=== PATIENT | female | born 1980 | race Caucasian/White ===

== ENCOUNTER 2017-02-19 18:35 | Observation (INO) ==
--- NOTE | 2017-02-19 19:00 | Emergency Department Note ---
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 The patient states that she also hit her head a week prior. The patient states for the past 3 days she has been experiencing right-sided paresthesias on the right and a severe headache on the left side of her head. The patient denies any true weakness. She states that she feels nauseated and has been gagging since then. The patient denies any other complaints at this time. The patient is sitting in the bed gagging and hiccuping, and rolling around the bed. Patient denies any other complaints. Onset (ago): day(s) (3) Location: head Pain Severity: severe Pain Scale: 10 Quality: crushing Consistency: constant Improves with: nothing Worsens with: nothing Associated symptoms: Reports: nausea/vomiting Treatments Prior to Arrival: none - Related Data Home Medications Medication Instructions Recorded Confirmed Albuterol Sulfate [Ventolin Hfa] 2 puff IH Q4H 07/03/16 02/19/17 Atorvastatin [Lipitor] 40 mg PO DAILY 07/03/16 02/19/17 Cholecalciferol (D-3) [Vitamin D] 2,000 unit PO DAILY 07/03/16 02/19/17 Clopidogrel [Plavix] 75 mg PO DAILY 07/03/16 02/19/17 Fish Oil/Dha/Epa [Fish Oil 1,200 1 cap PO DAILY 07/03/16 02/19/17 mg Fish Oil] Insulin DETEMIR [Levemir] 5 unit SQ HS 07/03/16 02/19/17 Insulin DETEMIR [Levemir] 15 unit SQ QAM 07/03/16 02/19/17 Insulin LISPRO [Humalog] 2 - 10 unit SQ TIDWM 07/03/16 02/19/17 Loratadine [Allergy Relief] 10 mg PO DAILY 07/03/16 02/19/17 Metoprolol XL (24 HR) Succ [Toprol 50 mg PO DAILY 07/03/16 02/19/17 Xl] Montelukast [Singulair] 10 mg PO DAILY 07/03/16 02/19/17 Naproxen [Naprosyn] 500 mg PO DAILY PRN 07/03/16 02/19/17 Omeprazole [PriLOSEC] 20 mg PO DAILY 07/03/16 02/19/17 Oxybutynin Chloride [Ditropan Xl] 10 mg PO DAILY 07/03/16 02/19/17 Tizanidine HCl [Zanaflex] 4 mg PO HS 07/03/16 02/19/17 amLODIPine [Norvasc] 10 mg PO DAILY 07/03/16 02/19/17 Famotidine [Pepcid] 40 mg PO HS 02/19/17 02/19/17 Fluticasone Propionate Nasal 50 mcg NS DAILY 02/19/17 02/19/17 [Flonase] Gabapentin [Neurontin] 600 mg PO TID 02/19/17 02/19/17 Multivitamin [Multi-Day Vitamins] 1 each PO DAILY 02/19/17 02/19/17 Nicotine Patch [Nicoderm] 21 mg TD DAILY 02/19/17 02/19/17 Ondansetron HCl [Zofran] 4 mg PO Q8H PRN 02/19/17 02/19/17 Paroxetine [Paxil] 50 mg PO QAM 02/19/17 02/19/17 SitaGLIPtin [Januvia] 100 mg PO DAILY 02/19/17 02/19/17 Allergies Allergy/AdvReac Type Severity Reaction Status Date / Time Amoxicillin [From Amoxil] Allergy Hives Verified 07/03/16 10:30 aspirin Allergy Hives Verified 07/03/16 10:30 cephalexin [From Keflex] Allergy Hives Verified 07/03/16 10:30 lisinopril Allergy Hives Verified 07/03/16 10:30 Penicillins Allergy Hives Verified 07/03/16 10:30 Sulfa (Sulfonamide Allergy Hives Verified 07/03/16 10:30 Antibiotics) sumatriptan [From Imitrex] Allergy Hives Verified 07/03/16 10:30 zolmitriptan [From Zomig] Allergy Hives Verified 07/03/16 10:30 All systems ED: reviewed and negative except as stated. Constitutional: Denies: fever, chills, weakness, weight change Eyes: Denies: eye pain, eye discharge, vision change ENT ED: Denies: ear pain, throat pain, dental pain, hearing loss, epistaxis, congestion, dysphagia Cardiovascular: Denies: chest pain, palpitations, dyspnea on exertion, edema, syncope Respiratory: Denies: cough, dyspnea, wheezes, hemoptysis, stridor Gastrointestinal: Denies: abdominal pain, nausea, vomiting, diarrhea, constipation, hematemesis, melena, hematochezia Genitourinary: Denies: dysuria, frequency, hematuria, discharge Musculoskeletal: Denies: back pain, neck pain, arthralgia, myalgia Integumentary: Denies: rash, abrasion, lesions Neurological: Reports: headache, numbness, paresthesias. Denies: weakness Past Medical History - Past Medical History Attestation: Yes The following information was validated with the patient. Source: patient Medical history: Reports: CVA, diabetes, hypertension, migraine, seizures, other Surgical history: Reports: no surgical history Psychiatric history: Reports: anxiety, bipolar, depression WORKS MANAGER history: Reports: no WORKS MANAGER history - Social History Smoking Status: Current every day smoker Smokeless Tobacco Status: No Alcohol use: Reports: occasionally Drug use: Reports: none Physical Exam - General Limitations: other General appearance: anxious - Head Head exam: atraumatic, normocephalic, normal inspection - Eye Eye exam: Present: normal appearance, PERRL, EOMI - ENT ENT exam: normal exam, normal oropharynx, mucous membranes moist - Neck Neck exam: Present: normal inspection, full ROM, trachea midline - Chest Chest inspection: Present: normal inspection, symmetric chest wall rise - Respiratory Respiratory exam: Present: normal lung sounds bilaterally - Cardiovascular Cardiovascular exam: Present: regular rate, normal rhythm, normal heart sounds - Abdominal Exam Abdominal exam: Present: soft, Non-Tender - Extremities Exam Extremities exam: Present: normal inspection, full ROM. Absent: pedal edema - Neurological Exam Neurological exam: Present: alert, oriented X3, CN II-XII intact - Psychiatric Psychiatric exam: Present: anxious - Skin Skin exam: Present: warm, dry, intact, normal color Course - Reevaluation(s) Reevaluation #1: Spoke with Dr. Lux in neurology who recommended CTA of the head and neck. We will obtain this as well as admit the patient to the hospitalist. Time: 20:30 Reevaluation #2: Spoke to Dr. Lux, who recommended that we consult [facility] with regards for possible stenting. After speaking with Dr. Beatty at [facility] there was no stenting recommended and to maximize medical therapy. He recommended MRI inpatient. We will perform this. Time: 22:47 Vital Signs Temperature 98.1 F 02/19/17 18:42 Pulse Rate 96 02/19/17 18:42 Respiratory Rate 18 02/19/17 18:42 Blood Pressure 133/87 02/19/17 18:42 O2 Sat by Pulse Oximetry 99 02/19/17 18:42 Temperature 98.1 F 02/19/17 18:42 Pulse Rate 96 02/19/17 18:42 Respiratory Rate 18 02/19/17 18:42 Blood Pressure 133/87 02/19/17 18:42 O2 Sat by Pulse Oximetry 99 02/19/17 18:42 Oxygen Delivery Oxygen Delivery Room Air Medical Decision Making - MDM Narrative Medical decision making narrative: Patient with history of CVA. She continues to experience paresthesias of right upper and lower extremities. The patient denies any chest pain. Patient does have a mild amount of epigastric pain at this time. EKG is unremarkable. CT scan unremarkable. The patient appears to be experiencing TIA versus complex migraine. We will admit the patient to the hospital at this time after consult in neurology. Patient denies any other complaints at this time. Headache has improved slightly but still present. Hospitalist accepted to their service. - Medical Records Medical records reviewed: Yes I reviewed the patient's medical records. - Lab Data Lab results reviewed: Yes I reviewed the patient's lab results. Result diagrams: 02/19/17 19:02 02/19/17 19:02 Lab Results 02/19/17 02/19/17 02/19/17 Range/Units 18:49 19:02 19:02 WBC 13.4 H (4.3-11.1) K/mcL RBC 5.20 H (3.82-4.97) M/mcL Hgb 14.6 (11.5-15.4) g/dL Hct 44.2 (35.3-44.9) % MCV 85.0 (83.0-100.0) fL MCH 28.1 (28.0-33.3) pg MCHC 33.0 (31.6-35.5) g/dL RDW 12.9 (11.5-14.5) % Plt Count 306 (140-400) K/mcL MPV 11.0 (9.4-12.4) fL Immature Gran % 0.4 (0-4) % Seg Neutrophils % 66.2 % Lymphocytes % 25.5 % Monocytes % 6.3 % Eosinophils % 1.1 % Basophils % 0.5 % Neutrophils # 8.9 (1.6-8.9) K/mcL Lymphocytes # 3.4 (0.6-4.6) K/mcL Monocytes # 0.8 (0.0-1.3) K/mcL Eosinophils # 0.2 (0.0-0.6) K/mcL Basophils # 0.1 (0.0-0.2) K/mcL PT (9.4-12.1) Seconds INR APTT (26.0-36.0) Seconds Sodium 135 L (136-145) mEq/L Potassium 3.8 (3.5-4.5) mEq/L Chloride 103 (98-109) mEq/L Carbon Dioxide 21 (19-29) mEq/L BUN 13 (7-20) mg/dL Creatinine 0.87 (0.57-1.11) mg/dL Est GFR ( Amer) > 60 (> 60) Est GFR (Non-Af Amer) > 60 (> 60) BUN/Creatinine Ratio 15 (6-26) Glucose 168 H (70-99) mg/dL POC Glucose 171 H (58-89) Calculated Osmolality 284 (280-300) Calcium 9.3 (8.6-10.8) mg/dL Total Bilirubin 0.2 (0.2-1.2) mg/dL AST 10 (5-34) Units/L ALT 11 (0-55) Units/L Alkaline Phosphatase 106 (38-126) Units/L Troponin I (0-0.03) ng/mL Serum Total Protein 7.6 (6.0-8.3) g/dL Albumin 3.4 L (3.5-5.0) g/dL Globulin 4.2 H (2.4-3.5) g/dL Albumin/Globulin Ratio 0.8 L (1.1-2.2) Urine Test (Negative) 02/19/17 02/19/17 02/19/17 Range/Units 19:02 19:02 20:03 WBC (4.3-11.1) K/mcL RBC (3.82-4.97) M/mcL Hgb (11.5-15.4) g/dL Hct (35.3-44.9) % MCV (83.0-100.0) fL MCH (28.0-33.3) pg MCHC (31.6-35.5) g/dL RDW (11.5-14.5) % Plt Count (140-400) K/mcL MPV (9.4-12.4) fL Immature Gran % (0-4) % Seg Neutrophils % % Lymphocytes % % Monocytes % % Eosinophils % % Basophils % % Neutrophils # (1.6-8.9) K/mcL Lymphocytes # (0.6-4.6) K/mcL Monocytes # (0.0-1.3) K/mcL Eosinophils # (0.0-0.6) K/mcL Basophils # (0.0-0.2) K/mcL PT 12.4 H (9.4-12.1) Seconds INR 1.1 APTT 27.5 (26.0-36.0) Seconds Sodium (136-145) mEq/L Potassium (3.5-4.5) mEq/L Chloride (98-109) mEq/L Carbon Dioxide (19-29) mEq/L BUN (7-20) mg/dL Creatinine (0.57-1.11) mg/dL Est GFR ( Amer) (> 60) Est GFR (Non-Af Amer) (> 60) BUN/Creatinine Ratio (6-26) Glucose (70-99) mg/dL POC Glucose (58-89) Calculated Osmolality (280-300) Calcium (8.6-10.8) mg/dL Total Bilirubin (0.2-1.2) mg/dL AST (5-34) Units/L ALT (0-55) Units/L Alkaline Phosphatase (38-126) Units/L Troponin I 0.00 (0-0.03) ng/mL Serum Total Protein (6.0-8.3) g/dL Albumin (3.5-5.0) g/dL Globulin (2.4-3.5) g/dL Albumin/Globulin Ratio (1.1-2.2) Urine Test Negative (Negative) - Radiology Data Radiology results reviewed: Yes I reviewed the patient's radiology results. - EKG Data EKG #1 EKG attestation: Yes I reviewed and interpreted this EKG. EKG results narrative: Heart rate 89 bpm. TX interval 216 ms. QTc 438 ms. Normal axis. Normal sinus rhythm. No ST elevation or ST depression noted. No acute changes from EKG from 07/03/2016. Attestation Statement - Attestation Attestation: I examined this patient and my medical decision-making was reviewed with the INDUSTRIAL REFRIGERATION MECHANIC/PA/Advanced Practice Nurse/Resident Physician. I agree with the documented findings, disposition and treatment plan as described except to the extent set forth below. [id number] time provided Patient complains of a headache that is subjectively different from her previous migraine-type headaches which she gets approximately twice per week. She states this headache moves in location. It is associated with nausea and photophobia. She appears slightly uncomfortable on exam but has a nonfocal neurologic exam. CT head negative for acute pathology including subarachnoid hemorrhage, mass effect, infarct
[2017-02-19 19:10] LABS: Basophils # 0.1 K/mcL (0.0-0.2); Basophils % 0.5 %; Eosinophils # 0.2 K/mcL (0.0-0.6); Eosinophils % 1.1 %; Hematocrit 44.2 % (35.3-44.9); Hemoglobin 14.6 g/dL (11.5-15.4); Immature Granulocytes % 0.4 % (0-4); Lymphocytes # 3.4 K/mcL (0.6-4.6); Lymphocytes % 25.5 %; Mean Corpuscular Hemoglobin 28.1 pg (28.0-33.3); Monocytes # 0.8 K/mcL (0.0-1.3); Monocytes % 6.3 %; Neutrophils # 8.9 K/mcL (1.6-8.9); Platelet Count 306 K/mcL (140-400); Red Cell Distribution Width 12.9 % (11.5-14.5); Segmented Neutrophils % 66.2 %
[2017-02-19 19:15] LABS: INR 1.1; Prothrombin Time 12.4 Seconds (9.4-12.1)
[2017-02-19] MEDS ORDERED: 0.9 % Sodium Chloride 1,000 ML IVC ONE (19:17)
[2017-02-19 19:18] LABS: Activated Partial Thrombo Time 27.5 Seconds (26.0-36.0)
[2017-02-19] MEDS ORDERED: Metoclopramide 10 MG/2 ML VIAL IVP ONE (19:18)
[2017-02-19 19:25] LABS: Alanine Aminotransferase 11 Units/L (0-55); Albumin 3.4 g/dL (3.5-5.0); Albumin/Globulin Ratio 0.8 (1.1-2.2); Alkaline Phosphatase 106 Units/L (38-126); Aspartate Amino Transferase 10 Units/L (5-34); BUN/Creatinine Ratio 15 (6-26); Bilirubin,Total 0.2 mg/dL (0.2-1.2); Blood Urea Nitrogen 13 mg/dL (7-20); Calcium 9.3 mg/dL (8.6-10.8); Carbon Dioxide 21 mEq/L (19-29); Chloride 103 mEq/L (98-109); Globulin 4.2 g/dL (2.4-3.5); Glucose 168 mg/dL (70-99); Osmolality,Calculated 284 (280-300); Potassium 3.8 mEq/L (3.5-4.5); Sodium 135 mEq/L (136-145); Total Protein 7.6 g/dL (6.0-8.3); eGFR For African Americans > 60 (> 60); eGFR For Non-African Americans > 60 (> 60)
[2017-02-19] MEDS ORDERED: Ketorolac 15 MG/ML VIAL IVP ONE (20:13)
[2017-02-20] MEDS ORDERED: Naloxone 0.4 MG/ML INJ IVP PRN (02:52)
[2017-02-20] MEDS ORDERED: Pantoprazole 40 MG VIAL IVP ONE (02:57)
[2017-02-20] MEDS ORDERED: D5% in Water 1,000 ML IVC PRN (02:58)
[2017-02-20] MEDS ORDERED: *HR* Dextrose 50 % in Water (Syg) 50 ML SYRINGE IVP PRN (02:58)
[2017-02-20] MEDS ORDERED: Dextrose Gel 15 GM PO PRN ×2 (02:58)
[2017-02-20] MEDS ORDERED: *HR* Morphine 2 MG/ML SYRINGE IVP ONE ×2 (02:59→06:05)
--- NOTE | 2017-02-20 03:03 | Internal Med History&Physical ---
Date of Encounter: 02/20/17 Time of Encounter: 03:03 Assessment and Plan (1) Headache Current visit: Yes Status: Acute Non-specific. Different from her usual pattern of migraine. CT head is negative. Consider Neurology consult Qualifiers: Headache type: unspecified Headache chronicity pattern: acute headache Intractability: intractable Qualified Code(s): R51 - Headache (2) TIA (transient ischemic attack) Current visit: Yes Status: Acute Right sided parasthesia. CT head shows no acute intracranial abnormality. CTA of neck and head reports focal stenosis of distal M1 segment of the left MCA. Will get MRI of the head, echocardiogram, Neurology consult, PT consult and speech therapy Qualifiers: Transient cerebral ischemia type: unspecified Qualified Code(s): G45.9 - Transient cerebral ischemic attack, unspecified (3) Essential hypertension Current visit: Yes Status: Chronic Continue home medications (4) Diabetes mellitus Current visit: Yes Status: Chronic Continue insulin and sliding scale Qualifiers: Diabetes mellitus type: type 2 Diabetes mellitus complication status: with neurologic complications Diabetes mellitus complication detail: with polyneuropathy Diabetes mellitus penitentiary insulin use: with penitentiary use Qualified Code(s): E11.42 - Type 2 diabetes mellitus with diabetic polyneuropathy; Z79.4 - halfway (current) use of insulin (5) Seizure disorder Current visit: Yes Status: Chronic Continue home meds. Neurology consult (6) Nicotine dependence Current visit: Yes Status: Chronic Nicotine patch Qualifiers: Nicotine product type: cigarettes Substance use status: uncomplicated Qualified Code(s): F17.210 - Nicotine dependence, cigarettes, uncomplicated (7) Numbness on right side Current visit: Yes Status: Acute CT head is negative. MRI head is pending. (8) Mediastinal mass Current visit: Yes Status: Acute CTA neck reported anterior mediastinal mass - consulted thoracic surgery for further w/u Internal Medicine - H&P: HPI Chief complaint: Headache; right upper extremtiy numbeness Admitted From: Emergency Dept Plans for Post Hospital Care: Home History of present illness: Ms. Kraus is a 36 year old female with history of insulin-dependent diabetes , seizure disorder, CVA due to vertebral artery dissection, hypertension, migraine. She presents with left sided headache, severe, sharp, going across the head different from her usual migraine. She had CVA with right sided weakness and residual right-sided numbness and paresthesias, worsening for the past 3 days. She reports long h/o word finding difficulty and slurred speech, which is unchanged. She reports that she was stung by a bee and immediately struck her head on the corner of a cabinet. The patient states that she also hit her head a week prior. She reports chest pain in the central chest pain - sharp, non radiating, and worse with movements and .deep breath. She denies significant shortness of breath, cough, expectoration, fever, chills. Reports some epigastric pain, and in the lower rib area bilaterally. She reports nausea, denies vomiting, dysuria , bowel changes. She was evaluated in the ER - CT head shows no acute intracranial abnormality. CTA of neck and head reports focal stenosis of distal M1 segment of the left MCA. Neurologist recommended MRI of head. She is admitted to the hospitalist service for further w/u and management. Past Med Surg Social Fam HX - Past Medical History Medical history: CVA, diabetes, hypertension, migraine, seizures, other Psychiatric history: anxiety, bipolar, depression - Past Surgical History Surgical History: no surgical history - Social History Smoking Status: Current every day smoker Smokeless Tobacco Status: No Alcohol use: none, occasionally Drug use: none - Family History Mother Hx Family Cardiac Disorders: Yes (CAD) Internal Medicine - H&P: Meds Albuterol Sulfate [Ventolin Hfa] 2 puff IH Q4H 07/03/16 [History] Atorvastatin [Lipitor] 40 mg PO DAILY 07/03/16 [History] Cholecalciferol (D-3) [Vitamin D] 2,000 unit PO DAILY 07/03/16 [History] Clopidogrel [Plavix] 75 mg PO DAILY 07/03/16 [History] Fish Oil/Dha/Epa [Fish Oil 1,200 mg Fish Oil] 1 cap PO DAILY 07/03/16 [History] Insulin DETEMIR [Levemir] 5 unit SQ HS 07/03/16 [History] Insulin DETEMIR [Levemir] 15 unit SQ QAM 07/03/16 [History] Insulin LISPRO [Humalog] 2 - 10 unit SQ TIDWM 07/03/16 [History] Loratadine [Allergy Relief] 10 mg PO DAILY 07/03/16 [History] Metoprolol XL (24 HR) Succ [Toprol Xl] 50 mg PO DAILY 07/03/16 [History] Montelukast [Singulair] 10 mg PO DAILY 07/03/16 [History] Naproxen [Naprosyn] 500 mg PO DAILY PRN 07/03/16 [History] Omeprazole [PriLOSEC] 20 mg PO DAILY 07/03/16 [History] Oxybutynin Chloride [Ditropan Xl] 10 mg PO DAILY 07/03/16 [History] Tizanidine HCl [Zanaflex] 4 mg PO HS 07/03/16 [History] amLODIPine [Norvasc] 10 mg PO DAILY 07/03/16 [History] Famotidine [Pepcid] 40 mg PO HS 02/19/17 [History] Fluticasone Propionate Nasal [Flonase] 50 mcg NS DAILY 02/19/17 [History] Gabapentin [Neurontin] 600 mg PO TID 02/19/17 [History] Multivitamin [Multi-Day Vitamins] 1 each PO DAILY 02/19/17 [History] Nicotine Patch [Nicoderm] 21 mg TD DAILY 02/19/17 [History] Ondansetron HCl [Zofran] 4 mg PO Q8H PRN 02/19/17 [History] Paroxetine [Paxil] 50 mg PO QAM 02/19/17 [History] SitaGLIPtin [Januvia] 100 mg PO DAILY 02/19/17 [History] Allergies Amoxicillin [From Amoxil] Allergy (Verified 07/03/16 10:30) Hives aspirin Allergy (Verified 07/03/16 10:30) Hives cephalexin [From Keflex] Allergy (Verified 07/03/16 10:30) Hives lisinopril Allergy (Verified 07/03/16 10:30) Hives Penicillins Allergy (Verified 07/03/16 10:30) Hives Sulfa (Sulfonamide Antibiotics) Allergy (Verified 07/03/16 10:30) Hives sumatriptan [From Imitrex] Allergy (Verified 07/03/16 10:30) Hives zolmitriptan [From Zomig] Allergy (Verified 07/03/16 10:30) Hives All Systems PM: A 10-system review of systems was performed and is negative for pertinent findings except as documented above in the HPI. - Constitutional Vitals: Temp Pulse Resp BP Pulse Ox 98.0 F 79 16 157/99 98 02/20/17 00:15 02/20/17 00:15 02/20/17 00:15 02/20/17 00:15 02/20/17 00:15 Exam: General: In mild distress at my evaluation. HEENT: Oral mucosa is moist. No conjunctival palor or scleral icterus. There is superficial tenderness over the left hemicranium. Neck: No obvious neck swellings Lungs: Clear to auscultation. Chest wall tenderness present in the sternal area and in the left parasternal area Cardiac: Regular rate and rhythm. No significant murmurs Abdomen: Soft; Bowel sounds present. Mild tenderness in the epigastric area Genitourinary: No saenz catheter Neurological: Alert and oriented. Residual right sided weakness from prior CVA Psych: Not aggressive or agitated Extremities: no significant leg edema Skin: No generalized rash Internal Med - H&P Results - Labs CBC & Chem 7: 02/20/17 04:37 02/20/17 04:37 - EKG Data -: EKG Interpreted by Myself EKG shows normal: sinus rhythm - EKG Data EKG comments: 1st degree A-V block 02/20/17 09:00 - Impressions ITS Impressions Head CT 02/19/17 18:49 IMPRESSION: No acute intracranial abnormality. D/ / Richar Rivera MD / Richar Rivera MD Interpreting Provider: Richar Rivera MD Head CTA 02/19/17 20:27 IMPRESSION: 1. Focal stenosis of the distal M1 segment of the left MCA, of uncertain etiology. 2. Incidentally noted hypoattenuating mass within the anterior mediastinum. D/ / Ramin Whatley MD / Ramin Whatley MD Interpreting Provider: Ramin Whatley MD Neck CTA 02/19/17 20:27
[2017-02-20 05:17] LABS: Basophils # 0.1 K/mcL (0.0-0.2); Basophils % 0.6 %; Eosinophils # 0.2 K/mcL (0.0-0.6); Eosinophils % 2.1 %; Hemoglobin 12.9 g/dL (11.5-15.4); Immature Granulocytes % 0.3 % (0-4); Lymphocytes # 3.4 K/mcL (0.6-4.6); Lymphocytes % 33.9 %; Mean Corpuscular HGB Conc 33.1 g/dL (31.6-35.5); Mean Corpuscular Hemoglobin 28.5 pg (28.0-33.3); Mean Corpuscular Volume 86.1 fL (83.0-100.0); Mean Platelet Volume 11.8 fL (9.4-12.4); Monocytes # 0.6 K/mcL (0.0-1.3); Monocytes % 5.9 %; Neutrophils # 5.8 K/mcL (1.6-8.9); Platelet Count 241 K/mcL (140-400); Red Blood Count 4.53 M/mcL (3.82-4.97); Segmented Neutrophils % 57.2 %
[2017-02-20 05:45] LABS: BUN/Creatinine Ratio 15 (6-26); Blood Urea Nitrogen 12 mg/dL (7-20); Calcium 8.4 mg/dL (8.6-10.8); Carbon Dioxide 21 mEq/L (19-29); Chloride 107 mEq/L (98-109); Chol/HDL Ratio 6.1 (0-4.9); Cholesterol 190 mg/dL (< 200); Glucose 208 mg/dL (70-99); HDL Cholesterol 31 mg/dL (40-59); LDL Cholesterol,Calculated 131 mg/dL (0-99); Lipase 66 Units/L (8-78); Magnesium 1.6 mg/dL (1.6-2.6); Osmolality,Calculated 290 (280-300); Potassium 3.6 mEq/L (3.5-4.5); Sodium 137 mEq/L (136-145); Triglycerides 138 mg/dL (< 150); eGFR For African Americans > 60 (> 60); eGFR For Non-African Americans > 60 (> 60)
[2017-02-20] MEDS: Nicotine 14 MG PATCH.TD24 TD SCH ×3 (05:59→11:49)
[2017-02-20] MEDS ORDERED: Magnesium Sulfate 1 GM in D5% in Water 100 ML IVPB ONE (07:03)
[2017-02-20] MEDS: Insulin LISPRO 300 UNITS/3 ML VIAL SQ SCH ×3 (08:28→17:53)
[2017-02-20] MEDS ORDERED: NON-FORMULARY MEDICATION 1 EACH EACH (Insulin Detemir 15 UNIT) SQ SCH (09:15)
[2017-02-20] MEDS ORDERED: Ketorolac 30 MG/ML VIAL IVP ONE (09:53)
[2017-02-20] MEDS ORDERED: Prochlorperazine 10 MG/2 ML VIAL IVP ONE (09:54)
--- NOTE | 2017-02-20 11:23 | Neurology - Consult Note ---
Date of Encounter: 02/20/17 Time of Encounter: 11:19 Assessment and Plan (1) Migraine Current Visit: No Status: Acute Patient apparently did not have a stroke and her symptoms have been present more than 3 days therefore it does not fit the diagnosis of TIA. She does have history of left pontine stroke therefore she may have baseline residual right sided symptoms which may be complicated by migraines, fluctuating BP or other medical conditions. Has had CTA of neck and brain as well. negative except left distal M1 segment stenosis. Not candidate for any type of intervention. At this time, treatment is largely symptomatic and supportive care. Can be followed up in neurology clinic in few weeks after discharge. Continue Plavix 75mg daily. No changes will be made in terms of CVA prevention Qualifiers: Migraine type: without aura Status migrainosus presence: with status migrainosus Intractability: not intractable Qualified Code(s): G43.001 - Migraine without aura, not intractable, with status migrainosus History of Present Illness Chief complaint: headache nausea and right sided paresthesia HPI: Ms. Kraus is a 36 year old female with PMH significant for left pontine infarct during 2014, DM, HTN, seizure disorder, hyperlipidemia, migraine who developed headache, chest pain and nausea. Also reports 3 days history of right sided paresthesia and occasionally to the left side as well. Has history of CVA during 2014 at the left pontine area. Has been taking Plavix 75mg daily. Has had some residual right sided paresthesia as result of previous stroke. Has migraines in the past as well. MRI of brain showed no acute infarct. Past Med Surg Social Fam HX - Past Medical History Medical history: CVA, diabetes, hypertension, migraine, seizures, other Psychiatric history: anxiety, bipolar, depression - Past Surgical History Surgical History: no surgical history - Social History Smoking Status: Current every day smoker Smokeless Tobacco Status: No Alcohol use: none, occasionally Drug use: none - Family History Mother Hx Family Cardiac Disorders: Yes (CAD) Medications and Allergies Albuterol Sulfate [Ventolin Hfa] 2 puff IH Q4H 07/03/16 [History] Atorvastatin [Lipitor] 40 mg PO DAILY 07/03/16 [History] Cholecalciferol (D-3) [Vitamin D] 2,000 unit PO DAILY 07/03/16 [History] Clopidogrel [Plavix] 75 mg PO DAILY 07/03/16 [History] Fish Oil/Dha/Epa [Fish Oil 1,200 mg Fish Oil] 1 cap PO DAILY 07/03/16 [History] Insulin DETEMIR [Levemir] 5 unit SQ HS 07/03/16 [History] Insulin DETEMIR [Levemir] 15 unit SQ QAM 07/03/16 [History] Insulin LISPRO [Humalog] 2 - 10 unit SQ TIDWM 07/03/16 [History] Loratadine [Allergy Relief] 10 mg PO DAILY 07/03/16 [History] Metoprolol XL (24 HR) Succ [Toprol Xl] 50 mg PO DAILY 07/03/16 [History] Montelukast [Singulair] 10 mg PO DAILY 07/03/16 [History] Naproxen [Naprosyn] 500 mg PO DAILY PRN 07/03/16 [History] Omeprazole [PriLOSEC] 20 mg PO DAILY 07/03/16 [History] Oxybutynin Chloride [Ditropan Xl] 10 mg PO DAILY 07/03/16 [History] Tizanidine HCl [Zanaflex] 4 mg PO HS 07/03/16 [History] amLODIPine [Norvasc] 10 mg PO DAILY 07/03/16 [History] Famotidine [Pepcid] 40 mg PO HS 02/19/17 [History] Fluticasone Propionate Nasal [Flonase] 50 mcg NS DAILY 02/19/17 [History] Gabapentin [Neurontin] 600 mg PO TID 02/19/17 [History] Multivitamin [Multi-Day Vitamins] 1 each PO DAILY 02/19/17 [History] Nicotine Patch [Nicoderm] 21 mg TD DAILY 02/19/17 [History] Ondansetron HCl [Zofran] 4 mg PO Q8H PRN 02/19/17 [History] Paroxetine [Paxil] 50 mg PO QAM 02/19/17 [History] SitaGLIPtin [Januvia] 100 mg PO DAILY 02/19/17 [History] Allergies Amoxicillin [From Amoxil] Allergy (Verified 07/03/16 10:30) Hives aspirin Allergy (Verified 07/03/16 10:30) Hives cephalexin [From Keflex] Allergy (Verified 07/03/16 10:30) Hives lisinopril Allergy (Verified 07/03/16 10:30) Hives Penicillins Allergy (Verified 07/03/16 10:30) Hives Sulfa (Sulfonamide Antibiotics) Allergy (Verified 07/03/16 10:30) Hives sumatriptan [From Imitrex] Allergy (Verified 07/03/16 10:30) Hives zolmitriptan [From Zomig] Allergy (Verified 07/03/16 10:30) Hives All Systems: A 10-system review of systems was performed and is negative for pertinent findings except as documented above in the HPI. Physical Examination - Vital Signs Vital Signs: Initial Vital Signs Temp Pulse Resp BP Pulse Ox 98.1 F 96 18 133/87 99 02/19/17 18:42 02/19/17 18:42 02/19/17 18:42 02/19/17 18:42 02/19/17 18:42 - Constitutional General appearance: uncomfortable - Neurologic Sensorimotor examination: intact Detailed motor examination: grossly full strength in all extremities Motor examination - right side: 5/5: deltoids, biceps, triceps, wrist flexion, wrist extension, media developer, hip flexors, tibialis Anterior, quadriceps, toe extension (EHL), plantarflexion Motor examination - left side: 5/5: deltoids, biceps, triceps, wrist flexion, wrist extension, hip flexors, media developer, quadriceps, tibialis Anterior, toe extension (EHL), plantarflexion Detailed sensory examination: intact Posture: other (None) Reflexes: Biceps: 1+, Triceps: 1+, Brachioradialis: 1+, Patella: 1+ Mental Status Examination: awake, alert, oriented to person, oriented to place, oriented to time, follows commands appropriately, answers questions appropriately, no agnosia, no aphasia, no aproxia Cranial nerve examination: PERRL, EOMI, visual arevalo intact, corneal reflexes brisk symmetrically, sensory to face intact, mastication intact, no facial asymmetry is present, no dysarthria, hearing is intact symmetrically, soft palate elevates bilaterally upon phonation, gag reflex intact, flexes SCM and trapezius muscles symmetrically with full power, tongue protrudes midline, no atrophy or facial fasiculations present Results - Laboratory Findings CBC and BMP: 02/20/17 04:37 02/20/17 04:37 Abnormal lab findings: Abnormal lab results PT 12.4 Seconds (9.4-12.1) H 02/19/17 19:02 Glucose 208 mg/dL (70-99) H 02/20/17 04:37 POC Glucose 171 (58-89) H 02/19/17 18:49 Calcium 8.4 mg/dL (8.6-10.8) L 02/20/17 04:37 Albumin 3.4 g/dL (3.5-5.0) L 02/19/17 19:02 Globulin 4.2 g/dL (2.4-3.5) H 02/19/17 19:02 Albumin/Globulin Ratio 0.8 (1.1-2.2) L 02/19/17 19:02 LDL Cholesterol, Calc 131 mg/dL (0-99) H 02/20/17 04:37 HDL Cholesterol 31 mg/dL (40-59) L 02/20/17 04:37 Cholesterol/HDL Ratio 6.1 (0-4.9) H 02/20/17 04:37 Consult Discharge Plan - Plan Referrals: Dasha Denton, BEAMING INSPECTOR [Primary Care Provider] -
[2017-02-20] MEDS: Fluticasone Propionate Nasal 50 MCG/SPRAY BOTTLE NS SCH (11:49)
[2017-02-20] MEDS: Multivit/Ca/Min/Fe/FA 1 TAB TABLET PO SCH (11:50)
[2017-02-20] MEDS: Metoprolol XL (24 HR) Succ 50 MG TAB.ER.24H PO SCH (11:50)
[2017-02-20] MEDS: amLODIPine 5 MG TABLET PO SCH (11:50)
--- NOTE | 2017-02-20 13:01 | Cardiothoracic Consult Note ---
Date of Encounter: 02/20/17 Time of Encounter: 12:59 Assessment and Plan (1) Transient cerebral ischemia Current Visit: No Status: Acute The assessment and plan as outlined above was discussed with the patient and/or family members who expressed understanding and agreement. All questions were answered. I reviewed the CT scan with the invasive radiologist. 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 Other possibilities include teratoma or lymphoma. This could undergo needle biopsy under CT guidance. However, this can wait until after her workup of her acute problem is finished. She would need to be off Plavix for at least 5 days prior to her needle biopsy. This can be done as an outpatient. Qualifiers: Transient cerebral ischemia type: unspecified Qualified Code(s): G45.9 - Transient cerebral ischemic attack, unspecified - History of Present Illness History of present illness: Ms. Kraus is a 36 year old female History of present illness. Patient is a 36-year-old female who presented with TIA like symptoms. She also has a history of migraines. Workup included a CT scan of the head and neck. 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 Past medical history is notable for hypertension. She also has diabetes on insulin. She has a history of a stroke 2 years ago. She has a history of migraine headaches. She has a history of anxiety, bipolar disorder and depression. Social history. She lives in [place] with her 4 children. According to the daughter, she is a heavy drinker. She does smoke 1/2-1 pack of cigarettes per day. Family history is positive for heart disease. Review of systems is otherwise negative. Past Med Surg Social Fam HX - Past Medical History Medical history: CVA, diabetes, hypertension, migraine, seizures, other Psychiatric history: anxiety, bipolar, depression - Past Surgical History Surgical History: no surgical history - Social History Smoking Status: Current every day smoker Smokeless Tobacco Status: No Alcohol use: none, occasionally Drug use: none - Family History Mother Hx Family Cardiac Disorders: Yes (CAD) Medications and Allergies Albuterol Sulfate [Ventolin Hfa] 2 puff IH Q4H 07/03/16 [History] Atorvastatin [Lipitor] 40 mg PO DAILY 07/03/16 [History] Cholecalciferol (D-3) [Vitamin D] 2,000 unit PO DAILY 07/03/16 [History] Clopidogrel [Plavix] 75 mg PO DAILY 07/03/16 [History] Fish Oil/Dha/Epa [Fish Oil 1,200 mg Fish Oil] 1 cap PO DAILY 07/03/16 [History] Insulin DETEMIR [Levemir] 5 unit SQ HS 07/03/16 [History] Insulin DETEMIR [Levemir] 15 unit SQ QAM 07/03/16 [History] Insulin LISPRO [Humalog] 2 - 10 unit SQ TIDWM 07/03/16 [History] Loratadine [Allergy Relief] 10 mg PO DAILY 07/03/16 [History] Metoprolol XL (24 HR) Succ [Toprol Xl] 50 mg PO DAILY 07/03/16 [History] Montelukast [Singulair] 10 mg PO DAILY 07/03/16 [History] Naproxen [Naprosyn] 500 mg PO DAILY PRN 07/03/16 [History] Omeprazole [PriLOSEC] 20 mg PO DAILY 07/03/16 [History] Oxybutynin Chloride [Ditropan Xl] 10 mg PO DAILY 07/03/16 [History] Tizanidine HCl [Zanaflex] 4 mg PO HS 07/03/16 [History] amLODIPine [Norvasc] 10 mg PO DAILY 07/03/16 [History] Famotidine [Pepcid] 40 mg PO HS 02/19/17 [History] Fluticasone Propionate Nasal [Flonase] 50 mcg NS DAILY 02/19/17 [History] Gabapentin [Neurontin] 600 mg PO TID 02/19/17 [History] Multivitamin [Multi-Day Vitamins] 1 each PO DAILY 02/19/17 [History] Nicotine Patch [Nicoderm] 21 mg TD DAILY 02/19/17 [History] Ondansetron HCl [Zofran] 4 mg PO Q8H PRN 02/19/17 [History] Paroxetine [Paxil] 50 mg PO QAM 02/19/17 [History] SitaGLIPtin [Januvia] 100 mg PO DAILY 02/19/17 [History] Allergies Amoxicillin [From Amoxil] Allergy (Verified 07/03/16 10:30) Hives aspirin Allergy (Verified 07/03/16 10:30) Hives cephalexin [From Keflex] Allergy (Verified 07/03/16 10:30) Hives lisinopril Allergy (Verified 07/03/16 10:30) Hives Penicillins Allergy (Verified 07/03/16 10:30) Hives Sulfa (Sulfonamide Antibiotics) Allergy (Verified 07/03/16 10:30) Hives sumatriptan [From Imitrex] Allergy (Verified 07/03/16 10:30) Hives zolmitriptan [From Zomig] Allergy (Verified 07/03/16 10:30) Hives All Systems Review: A 10-system review of systems was performed and is negative for pertinent findings except as documented above in the HPI. Physical Examination Pupils are equal, round and reactive to light and accommodation. No oral lesions. Neck is supple. Trachea in the midline. No thyromegaly or carotid bruits. Lungs are clear to percussion and auscultation. Heart is in a regular rate and rhythm. No murmurs, gallops or rubs. Abdomen is benign. No tenderness, rebound or guarding. Extremities without edema. 1+ pulses. Cranial nerves, motor and sensory intact. Results 02/20/17 04:37 02/20/17 04:37 Lab Results, Last 24 hours 02/20/17 02/20/17 02/20/17 04:37 04:37 04:37 WBC 10.1 Hgb 12.9 D Hct 39.0 Plt Count 241 Sodium 137 Potassium 3.6 Chloride 107 Carbon Dioxide 21 BUN 12 Creatinine 0.80 Glucose 208 H Calcium 8.4 L Magnesium 1.6 Troponin I 0.01 Lipase 66 02/20/17 09:38 WBC Hgb Hct Plt Count Sodium Potassium Chloride Carbon Dioxide BUN Creatinine Glucose Calcium Magnesium Troponin I 0.01 Lipase Consult Discharge Plan - Plan Referrals: Dasha Denton, GRADER TENDER [Primary Care Provider] -
--- NOTE | 2017-02-20 14:51 | Electrocardiograph Report ---
[address] [place], [place] [address] Test Date: 2017-02-19 Pat Name: Erinn Kraus Department: 105 Room: 3B54 Gender: F Senior Economist: ISABELLA : 1980 Requested By: Antony Morel Order Number: [id number] Reading MD: Karl Enriquez MD Measurements Intervals [place] Rate: 89 P: 52 AK: 216 QRS: 16 QRSD: 77 T: 12 QT: 392 QTc: 438 Interpretive Statements SINUS RHYTHM WITH FIRST DEGREE AV BLOCK LEFT ATRIAL ENLARGEMENT LEFT VENTRICULAR HYPERTROPHY Electronically Signed On 02-20-2017 14:49:45 EDT by Karl Enriquez MD
[2017-02-20] MEDS: Gabapentin 300 MG CAPSULE PO SCH ×2 (15:40→21:32)
[2017-02-20] MEDS ORDERED: Ketorolac 30 MG/ML VIAL IVP PRN (16:38)
--- NOTE | 2017-02-20 16:42 | Event Note ---
Date of Encounter: 02/20/17 Time of Encounter: 15:30 Patient seen and examined. On examination, patient sitting upright in bed watching television. Patient also conversing with her daughter and her father. She still complains of a headache that feels like sharp knives in her head. She states that this is different than her typical migraines. Head CT negative. Head CTA revealing focal stenosis of the left MCA however per neurology, not amenable to intervention. Brain MRI negative for acute processes and again revealing her old, prior infarct to the pontine. Patient stating that her right upper extremity and right-sided facial numbness and tingling is resolving. Regarding her mediastinal mass, incidental finding, she has seen cardiothoracic surgery he will follow up with her outpatient for a biopsy, she needs to be off her Plavix for at least 5 days prior to this procedure. Speech therapy had no recommendations. Physical therapy consultation pending. Neurology on board recommended continuing Plavix and following up outpatient. Symptoms suggestive of a complicated migraine. Echocardiogram still pending. Will observe overnight. Her headache was resolved with migraine cocktail. Patient stating the migraine cocktail helped better than narcotics. Of note, patient stating that she has several seizures 3 -4 times every week. She describes these episodes as when her mind starts to go fast, the other part of her mind "shuts down" and she is then unconscious for seconds to hours at a time. Her daughter is at the bedside and cooperates this stating that her mother knows when she is getting 3 to have a "seizure" and states that she will just "go limp" and then her daughter states that it appears as if her mom sleeps for sometimes up to hours at a time. Patient denies any incontinence or injuries during these episodes. She denies any postictal symptoms. Symptoms consistent with PTSD and patient's prior issues. Patient did not want to speak about her childhood in front of her father and her daughter regarding whether or not she has had trauma in the past. She was following with Dr. Stern and has requested to transition to Dr. Lux. Will give Toradol and Fioricet for her headaches (documented allergies to two triptans)- try to avoid narcotics. ITS Impressions Head CT 02/19/17 18:49 IMPRESSION: No acute intracranial abnormality. D/ / Richar Rivera MD / Richar Rivera MD Interpreting Provider: Richar Rivera MD Head CTA 02/19/17 20:27 IMPRESSION: 1. Focal stenosis of the distal M1 segment of the left MCA, of uncertain etiology. 2. Incidentally noted hypoattenuating mass within the anterior mediastinum. D/ / Ramin Whatley MD / Ramin Whatley MD Interpreting Provider: Ramin Whatley MD Neck CTA 02/19/17 20:27 IMPRESSION: 1. Focal stenosis of the distal M1 segment of the left MCA, of uncertain etiology. 2. Incidentally noted hypoattenuating mass within the anterior mediastinum. D/ / Ramin Whatley MD / Ramin Whatley MD Interpreting Provider: Ramin Whatley MD Brain MRI 02/20/17 02:59 IMPRESSION: No evidence of acute ischemia. Old central pontine infarct which is unchanged. D/ / 02/20/2017 11:54:11 Riley Mas MD / Iqra Balderrama Interpreting Provider: Riley Mas MD
[2017-02-20] MEDS ORDERED: Famotidine 20 MG TABLET PO SCH (21:00)
[2017-02-20] MEDS ORDERED: INSULIN DETEMIR 5 UNIT SQ SCH (21:00)
[2017-02-20] MEDS ORDERED: Insulin DETEMIR 100 UNIT/ML X5UNITS SQ SCH (21:00)
[2017-02-20] MEDS ORDERED: Insulin LISPRO 300 UNITS/3 ML VIAL SQ SCH (21:00)
[2017-02-20] MEDS ORDERED: tiZANidine 4 MG TABLET PO SCH (21:00)
[2017-02-20] MEDS: Acetaminophen/Butalbital/CaffeineTABLET PO PRN (22:18)
[2017-02-21] MEDS: Acetaminophen/Butalbital/CaffeineTABLET PO PRN ×2 (04:11→12:28)
[2017-02-21] MEDS: Insulin LISPRO 300 UNITS/3 ML VIAL SQ SCH ×2 (08:15→12:28)
[2017-02-21] MEDS: Nicotine 14 MG PATCH.TD24 TD SCH (08:15)
[2017-02-21] MEDS: Fluticasone Propionate Nasal 50 MCG/SPRAY BOTTLE NS SCH (08:15)
[2017-02-21] MEDS: Gabapentin 300 MG CAPSULE PO SCH (08:16)
[2017-02-21] MEDS: amLODIPine 5 MG TABLET PO SCH (08:16)
[2017-02-21] MEDS: Metoprolol XL (24 HR) Succ 50 MG TAB.ER.24H PO SCH (08:17)
[2017-02-21] MEDS: Multivit/Ca/Min/Fe/FA 1 TAB TABLET PO SCH (08:17)
[2017-02-21] MEDS ORDERED: Insulin DETEMIR 100 UNIT/ML X5UNITS SQ SCH (09:00)
[2017-02-21] MEDS ORDERED: Cholecalciferol (D-3) 1,000 UNIT TABLET PO SCH (09:00)
[2017-02-21] MEDS ORDERED: (Fish Oil/Dha/Epa [Fish Oil 1,200 Mg Fish Oil] 1 CAP) PO SCH (09:00)
--- NOTE | 2017-02-21 09:45 | Neurology Progress Note ---
Date of Encounter: 02/21/17 Time of Encounter: 09:43 Assessment and Plan (1) Migraine Current Visit: No Status: Acute Improving. Certainly need follow up in the next few weeks will discuss other options including migraine preventatives and abortive therapies. May also be a good candidate for botox injection for treatment of chronic intractable migraines. Qualifiers: Migraine type: without aura Status migrainosus presence: with status migrainosus Intractability: not intractable Qualified Code(s): G43.001 - Migraine without aura, not intractable, with status migrainosus (2) Seizure disorder Current Visit: Yes Status: Chronic These are still frequent and not well controlled. Some of features reported of her seizure may suggest non-epileptic events other than epileptic ones but this barron require dedicated intermodal truck driver EEG monitoring to confirm the seizure etiology. Will follow up with her in 2-3 weeks after discharge (3) CVA (cerebral vascular accident) Current Visit: No Status: Chronic Has history of left pontine infarct during 2014. This time there is no evidence of new cerebral infarct. Qualifiers: CVA mechanism: unspecified Qualified Code(s): I63.9 - Cerebral infarction, unspecified Subjective Principal diagnosis: complicated migraine Interval history: Patient seen and examined. She is doing better although still has some residual headaches. No new neurological deficits. She reports rather frequent seizure like activity and has known history of seizure but apparently seizures have not been well controlled. She will be closely followed up in Neurology clinic in next few weeks. Objective - Constitutional Vitals: Temp Pulse Resp BP Pulse Ox 97.7 F 77 15 162/97 96 02/21/17 07:50 02/21/17 07:50 02/21/17 07:50 02/21/17 07:50 02/21/17 07:50 - Neurological Exam Sensorimotor examination: Present: intact Motor Examination: Present: grossly full strength in all extremities Motor examination - left side: 5/5: deltoids, biceps, triceps, wrist flexion, wrist extension, hip flexors, retail parts professional, quadriceps, tibialis Anterior, toe extension (EHL), plantarflexion Sensation intact: Present: intact Posture: Present: other (None) Reflex and gait examination: intact Reflexes: Biceps: 1+, Triceps: 1+, Brachioradialis: 1+, Patella: 1+, Achilles: 1 + Mental Status Examination: Present: awake, alert, oriented to person, oriented to place, oriented to time, follows commands appropriately, answers questions appropriately, no agnosia, no aphasia, no aproxia Cranial nerve examination: Present: PERRL, EOMI, visual arevalo intact, corneal reflexes brisk symmetrically, sensory to face intact, mastication intact, no facial asymmetry is present, no dysarthria, hearing is intact symmetrically, soft palate elevates bilaterally upon phonation, gag reflex intact, flexes SCM and trapezius muscles symmetrically with full power, tongue protrudes midline, no atrophy or facial fasiculations present Results - Laboratory Findings CBC and BMP: 02/20/17 04:37 02/20/17 04:37 Abnormal lab findings: Abnormal lab results PT 12.4 Seconds (9.4-12.1) H 02/19/17 19:02 Glucose 208 mg/dL (70-99) H 02/20/17 04:37 POC Glucose 228 (58-89) H 02/20/17 20:20 Calcium 8.4 mg/dL (8.6-10.8) L 02/20/17 04:37 Albumin 3.4 g/dL (3.5-5.0) L 02/19/17 19:02 Globulin 4.2 g/dL (2.4-3.5) H 02/19/17 19:02 Albumin/Globulin Ratio 0.8 (1.1-2.2) L 02/19/17 19:02 LDL Cholesterol, Calc 131 mg/dL (0-99) H 02/20/17 04:37 HDL Cholesterol 31 mg/dL (40-59) L 02/20/17 04:37 Cholesterol/HDL Ratio 6.1 (0-4.9) H 02/20/17 04:37 Consult Discharge Plan - Plan Referrals: Dasha Denton CNP [Primary Care Provider] - 02/26/17 10:50 am
[2017-02-21 10:57] VITALS: BP 121/76
--- NOTE | 2017-02-21 13:37 | Discharge Summary ---
Date of Encounter: 02/21/17 Time of Encounter: 10:30 - Discharge Diagnosis (1) Transient cerebral ischemia Priority: Primary Status: Resolved Qualifiers: Transient cerebral ischemia type: unspecified Qualified Code(s): G45.9 - Transient cerebral ischemic attack, unspecified (2) Essential hypertension Priority: Secondary Status: Chronic Comments: Patient is hypertensive at night while sleeping but normotensive during the day. Patient stating she has a history of a traumatic childhood and states she does not sleep very well. Follow-up outpatient. (3) Hyperlipidemia Priority: Secondary Status: Chronic Comments: Lipid panel borderline abnormal. Recommend continue low-cholesterol diet and statin Qualifiers: Hyperlipidemia type: unspecified Qualified Code(s): E78.5 - Hyperlipidemia , unspecified (4) Diabetes mellitus Priority: Secondary Status: Chronic Comments: Appears moderately controlled. Most recent A1c from last year 8.0%. Recommend continued follow-up outpatient. Qualifiers: Diabetes mellitus type: type 2 Diabetes mellitus complication status: with neurologic complications Diabetes mellitus complication detail: with polyneuropathy Diabetes mellitus intermodal dispatcher insulin use: with skilled nursing use Qualified Code(s): E11.42 - Type 2 diabetes mellitus with diabetic polyneuropathy; Z79.4 - penitentiary (current) use of insulin (5) Seizure disorder Priority: Secondary Status: Chronic Comments: No seizure-like activity since admission. In speaking with the patient and her family, seizures are more consistent with her acquired coping mechanism from childhood trauma. (6) Migraine Priority: Primary Status: Resolved Comments: Patient stating her migraine improved on day of discharge with Fioricet, will send home with short supply and have her follow-up with neurology outpatient. Qualifiers: Migraine type: without aura Status migrainosus presence: with status migrainosus Intractability: not intractable Qualified Code(s): G43.001 - Migraine without aura, not intractable, with status migrainosus (7) Bipolar disorder (manic depression) Priority: Secondary Status: Chronic Comments: Mood and affect stable during this admission Qualifiers: Active/Remission status: remission status unspecified Qualified Code(s): F31.9 - Bipolar disorder, unspecified (8) Nicotine dependence Priority: Secondary Status: Chronic Comments: Declined counseling. Qualifiers: Nicotine product type: cigarettes Substance use status: uncomplicated Qualified Code(s): F17.210 - Nicotine dependence, cigarettes, uncomplicated (9) Numbness on right side Priority: Primary Status: Resolved (10) Mediastinal mass Priority: Primary Status: Acute Comments: Seen and evaluated by cardiothoracic surgery and will schedule for an outpatient biopsy. Patient needs to be off her Plavix for 5 days prior - Discharge Medications Prescriptions: Acetaminophen/Butalbital/Caffe [Fioricet] 1 each PO Q6HR PRN #20 tablet PRN Reason: Headache Home Medications: Albuterol Sulfate [Ventolin Hfa] 2 puff IH Q4H 07/03/16 [History] Atorvastatin [Lipitor] 40 mg PO DAILY 07/03/16 [History] Cholecalciferol (D-3) [Vitamin D] 2,000 unit PO DAILY 07/03/16 [History] Clopidogrel [Plavix] 75 mg PO DAILY 07/03/16 [History] Fish Oil/Dha/Epa [Fish Oil 1,200 mg Fish Oil] 1 cap PO DAILY 07/03/16 [History] Insulin DETEMIR [Levemir] 5 unit SQ HS 07/03/16 [History] Insulin DETEMIR [Levemir] 15 unit SQ QAM 07/03/16 [History] Insulin LISPRO [Humalog] 2 - 10 unit SQ TIDWM 07/03/16 [History] Loratadine [Allergy Relief] 10 mg PO DAILY 07/03/16 [History] Metoprolol XL (24 HR) Succ [Toprol Xl] 50 mg PO DAILY 07/03/16 [History] Montelukast [Singulair] 10 mg PO DAILY 07/03/16 [History] Naproxen [Naprosyn] 500 mg PO DAILY PRN 07/03/16 [History] Omeprazole [PriLOSEC] 20 mg PO DAILY 07/03/16 [History] Oxybutynin Chloride [Ditropan Xl] 10 mg PO DAILY 07/03/16 [History] Tizanidine HCl [Zanaflex] 4 mg PO HS 07/03/16 [History] amLODIPine [Norvasc] 10 mg PO DAILY 07/03/16 [History] Famotidine [Pepcid] 40 mg PO HS 02/19/17 [History] Fluticasone Propionate Nasal [Flonase] 50 mcg NS DAILY 02/19/17 [History] Gabapentin [Neurontin] 600 mg PO TID 02/19/17 [History] Multivitamin [Multi-Day Vitamins] 1 each PO DAILY 02/19/17 [History] Nicotine Patch [Nicoderm] 21 mg TD DAILY 02/19/17 [History] Ondansetron HCl [Zofran] 4 mg PO Q8H PRN 02/19/17 [History] Paroxetine [Paxil] 50 mg PO QAM 02/19/17 [History] SitaGLIPtin [Januvia] 100 mg PO DAILY 02/19/17 [History] Acetaminophen/Butalbital/Caffe [Fioricet] 1 each PO Q6HR PRN #20 tablet [Rx] Allergies/Adverse Reactions: Allergies Amoxicillin [From Amoxil] Allergy (Verified 07/03/16 10:30) Hives aspirin Allergy (Verified 07/03/16 10:30) Hives cephalexin [From Keflex] Allergy (Verified 07/03/16 10:30) Hives lisinopril Allergy (Verified 07/03/16 10:30) Hives Penicillins Allergy (Verified 07/03/16 10:30) Hives Sulfa (Sulfonamide Antibiotics) Allergy (Verified 07/03/16 10:30) Hives sumatriptan [From Imitrex] Allergy (Verified 07/03/16 10:30) Hives zolmitriptan [From Zomig] Allergy (Verified 07/03/16 10:30) Hives Procedures/tests Complete & Pending: Procedures Performed prior 72 hours Category Date Time Status MR head/brain wo con [MR] Routine MRI 02/20/17 02:59 Completed EV echocardiogram Routine Y 02/20/17 02:59 Completed Date of admission: 02/19/17 21:54 Primary care physician: Dasha Denton CNP Consults: 02/20/17 02:55 Consult to Physical Therapy [CONS] Routine Comment: Evaluate, develop and implement POC Reason for Consult: Eval and treat Consult to Speech Therapy [CONS] Routine Comment: Evaluate, develop and implement POC Reason for Consult: Slurred speech Call Completed: No 02/20/17 09:17 Consult to Thoracic Surgery [CONS] Routine Consulting Provider: Cardiothoracic Surgery Divya Reason for Consult: anterior mediatinal mass Call Completed: Yes Discharging clinician: Gracie Rose Anticipated date of discharge: 06/16/17 - Patient Status Disposition: Home, Self-Care Condition: Good Functional capacity at discharge: independent ambulation Overall status at discharge: patient is back to baseline - Discharge Instructions Follow Up With: Dasha Denton CNP [Primary Care Provider] - 02/26/17 10:50 am Gregorio Iverson MD [Partnered Physician] - 03/13/17 1:45 pm Lucinda Lux MD [Partnered Physician] - 03/12/17 8:15 am Additional Instructions: Follow-up with primary care provider, cardiothoracic surgery, and neurology as scheduled - Diet and Activity Activity: increase activity as tolerated Diet: diabetic diet, low salt diet Hospital course: Ms. 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 Patient presented to the emergency department chief complaint of left-sided headache described as severe and sharp and going across her head. She states this headache felt different than her typical migraines. Patient has a history of CVA with right-sided weakness and residual right-sided numbness and paresthesias that had worsened over the 3 days prior to presentation which prompted her presentation. Patient also with mild, chronic expressive aphasia. Patient stating in the 2 weeks prior to presentation, that she had accidentally hit her head a total of 3 times. She denied any loss of consciousness during these episodes and described mechanical falls prior. Patient also reporting chest pain in the central chest area described as sharp and without radiation and worsened with movement and deep breathing. Patient denied shortness of breath, cough, fever, chills. She did endorse epigastric pain as well as nausea. Workup in the emergency department unremarkable. Head CT negative for acute processes. Head and neck CTA revealing focal stenosis to the left MCA. Per neurology, not amenable to intervention. CTA also had an incidental finding of a mediastinal mass. Patient was admitted to the hospitalist service for further evaluation and management. Brain MRI negative for acute processes and again revealing her old, prior infarct to the pontine. Patient stating that her right upper extremity and right-sided facial numbness and tingling resolved. Cardiothoracic surgery was brought on board for her mediastinal mass and cleared her for an outpatient biopsy at which time she will need to be off her Plavix 5 days prior. Seen and evaluated by speech therapy who had no recommendations. Physical therapy recommended outpatient therapy that would need to be set up by her primary care provider. Echocardiogram unremarkable with ejection fraction of 60%. Regarding her headache, she has an intolerance to trip tans and narcotics were avoided. She was given Fioricet which helped with her headaches. She was seen and evaluated by neurology who is also cleared her for outpatient follow-up within 2-3 weeks for further investigation and treatment of her migraines and her seizure disorder. Spoke to patient at length regarding her seizures. She states that she has seizures 3-4 times a week every week. Her daughter was present at the bedside and cooperated her mother symptoms. Patient stating that when she becomes really stressed that "the other half of my brain shuts my body down and nicely for several hours." This is more consistent with nonepileptic seizure. Upon further discussion with the patient, she had quite a bit of childhood trauma that has continued until today. Suspect this is her defense mechanism with stress rather than epileptic seizures. She states that she has a counselor that she sees frequently outpatient. She will also follow-up with neurology for further evaluation. She was discharged home in stable condition with close outpatient follow-up recommended. ITS Impressions Head CT 02/19/17 18:49 IMPRESSION: No acute intracranial abnormality. D/ / Richar Rivera MD / Richar Rivera MD Interpreting Provider: Richar Rivera MD Head CTA 02/19/17 20:27 IMPRESSION: 1. Focal stenosis of the distal M1 segment of the left MCA, of uncertain etiology. 2. Incidentally noted hypoattenuating mass within the anterior mediastinum. D/ / Ramin Whatley MD / Ramin Whatley MD Interpreting Provider: Ramin Whatley MD Neck CTA 02/19/17 20:27 IMPRESSION: 1. Focal stenosis of the distal M1 segment of the left MCA, of uncertain etiology. 2. Incidentally noted hypoattenuating mass within the anterior mediastinum. D/ / Ramin Whatley MD / Ramin Whatley MD Interpreting Provider: Ramin Whatley MD Brain MRI 02/20/17 02:59 IMPRESSION: No evidence of acute ischemia. Old central pontine infarct which is unchanged. D/ / 02/20/2017 11:54:11 Riley Mas MD / Iqra Balderrama Interpreting Provider: Riley Mas MD Echo with saline contrast impressions: Normal LV systolic function, LVEF 60%. Normal left ventricular diastolic function. Normal right ventricular size and function. No evidence of intracardiac shunting with agitated saline contrast. No evidence of pulmonary hypertension. No significant valvular dysfunction. - Time Spent with Patient Total time spent providing and/or coordinating discharge services: - Constitutional Vitals: Temp Pulse Resp BP Pulse Ox 98.1 F 72 16 121/76 95 02/21/17 10:57 02/21/17 10:57 02/21/17 10:57 02/21/17 10:57 02/21/17 10:57 General appearance: Present: A&O X 3, pleasant, no acute distress, answers questions appropriately - Head Head exam: Present: atraumatic, normocephalic - Eye Eye exam: Present: PERRL, conjuntiva pink, sclera anicteric Pupils: Present: PERRL - Neck Neck exam general surgery: Present: supple, trachea midline. Absent: lymphadenopathy - Respiratory Respiratory exam: Present: decreased breath sounds. Absent: accessory muscle use, rales, respiratory distress, rhonchi, wheezes - Cardiovascular Cardiovascular exam: Present: RRR, +S1, +S2. Absent: diastolic murmur, gallop, rubs, systolic murmur - GI/Abdominal GI/Abdominal exam: Present: normal bowel sounds, soft, no peritoneal signs. Absent: distended, tenderness - Extremities Exam Extremities exam: Present: warm, radial pulses palpable and symetrical. Absent : calf tenderness, cyanotic, pedal edema - Neurological Exam Neurological exam: Present: alert, CN II-XII intact, oriented X3, no focal deficits. Absent: strengths equal and symetr throughout, pronater drift, facial droop, speech deficit - Skin Skin exam: Present: dry, intact, normal color, warm
== END 2017-02-21 15:43 | disposition home or self-care (01) ==
LOC: 3BNU 18:35 → EMEROO 18:35 → 3BNU 23:28
PROVIDERS: ADMIT Internal Medicine; ATTEND Nurse Practitioner Family